=== PATIENT | male | born 1965 | race Caucasian/White ===

== ENCOUNTER 2020-06-10 12:38 | Emergency (ER) | payer OTHER, SELFPAY ==
[2020-06-10 12:56] VITALS: BP 143/85; PULSE 91; RESP 18; TEMP 36.9; O2SAT 98
--- NOTE | 2020-06-10 13:03 | DI.US.S_ITS ---
PROCEDURE: US PERIPH VENOUS LOW EXTREM RT INDICATIONS: PAIN, EDEMA TECHNIQUE: Real-time imaging, as well as color and pulse Doppler interrogation, were performed of the lower extremity deep veins from the inguinal ligament to the popliteal fossa. COMPARISON: None. FINDINGS: The common femoral, femoral and popliteal veins are normally compressible, and free of intraluminal thrombus. Color and pulse Doppler demonstrate normal phasic intraluminal flow. There is normal augmentation response to distal compression maneuver. IMPRESSION: No evidence of DVT in visualized right lower extremity veins. Dictated by: Earl Calderon M.D. on 06/10/2020 at 12:42 Approved by: Earl Calderon M.D. on 06/10/2020 at 12:48
--- NOTE | 2020-06-10 13:05 | DI.RAD.S_ITS ---
PROCEDURE: XR KNEE RT 3V INDICATIONS: pain behind right knee TECHNIQUE: 3 views of the knee were acquired. COMPARISON: None. FINDINGS: Bones: No fracture. Severe narrowing of the lateral patellofemoral joint space. Scattered degenerative subchondral sclerosis and spurring. Moderate narrowing of the medial lateral joint spaces. Possible 1 cm loose body projecting adjacent to the lateral aspect of the distal femoral metaphysis, technically nonspecific. Soft tissues: No joint effusion. No suspicious soft tissue calcifications. IMPRESSION: Severe right knee joint degeneration most pronounced in the patellofemoral compartment. Possible loose body as above Dictated by: Damon Murray M.D. on 06/10/2020 at 13:59 Approved by: Damon Murray M.D. on 06/10/2020 at 14:01
[2020-06-10 14:40] VITALS: PULSE 80
--- NOTE | 2020-06-10 14:40 | ED_ITS ---
HPI - Extremity Problem <SANJANA Kee- - Last Filed: 06/10/20 17:51> General Chief complaint: Extremity Problem,Nontraumatic Stated complaint: hurt back of right knee, also hot Time Seen by Provider: 06/10/20 14:39 Source: patient and family Mode of arrival: Ambulatory Limitations: no limitations History of Present Illness HPI Narrative: The patient is a delightful 55-year-old male former smoker with history of poor circulation to his right leg who presents with a chief complaint of right lower leg pain and swelling. He states has been going on behind his knee 1st past several months. He has been using Aleve, he noticed that a gets very stiff in his right knee when he gets up to walk. Denies any fevers nausea vomiting or diarrhea. He denies any specific alleviating factors, states that it feels worse with motion. Denies any falls or trauma. States he has been working on his house recently, so increased physical activity. He denies any specific injuries to his knee or known arthritis. Related Data Home Medications Medication Instructions Recorded Confirmed naproxen sodium [Aleve] 220 mg PO Q12H PRN 06/10/20 06/10/20 Previous Rx's Medication Instructions Recorded ketorolac 10 mg PO TID PRN #14 tab 06/10/20 lidocaine 1 patch TOP DAILY PRN #15 each 06/10/20 Allergies Allergy/AdvReac Type Severity Reaction Status Date / Time No Known Drug Allergies Allergy Verified 06/10/20 13:00 Review of Systems <[facility] - Last Filed: 06/10/20 17:51> Review of Systems Narrative: GENERAL: Denies chills, fatigue, malaise, fever, sweats. HEENT: Denies sinus pain, ear pain, sore throat, difficulty swallowing, dizziness. RESPIRATORY: Denies dyspnea, cough, wheezing, hemoptysis, sputum. CARDIOVASCULAR: Denies chest pain, palpitations, orthopnea, edema, GASTROINTESTINAL: Denies nausea, vomiting, abdominal pain, diarrhea, constipation, melena. : Denies dysuria, frequency, incontinence, hematuria, urinary retention. MUSCULOSKELETAL: See HPI SKIN: Denies rash, skin lesions, or other NEUROLOGIC: Denies weakness, headache, numbness, change in speech, confusion, seizures, incoordination. PSYCHIATRIC: No concerning psychosocial issues. 12 point review of systems is negative except for those stated above Patient History <TANYA Kee - Last Filed: 06/10/20 17:51> Social History Smoking Status: Former smoker Smoking Status: Former smoker tobacco type: smokeless tobacco alcohol intake frequency: 0-2 drinks per day Substance Use Type: does not use Exam <TANYA Kee - Last Filed: 06/10/20 17:51> Narrative Exam Narrative: GENERAL: This is a well-nourished, well-developed patient, no acute distress with at bedside HEAD: Atraumatic. Normocephalic. No temporal or scalp tenderness. EYES: Pupils equal round and reactive. Extraocular motions intact. No scleral icterus. No injection or drainage. ENT: Nose without bleeding, purulent drainage or septal hematoma. Wearing a mask. Airway patent. CARDIOVASCULAR: Regular rate and rhythm RESPIRATORY: Clear to auscultation. Breath sounds equal bilaterally. No wheezes, rales, or rhonchi. No cough. No increased respiratory effort. No accessory muscle use. EXTREMITIES: Able to fully flex and extend right knee and leg. Able to lift leg off of chair. Positive pedal pulses. BACK: Nontender without deformity or crepitance. No flank tenderness. NEURO: AOx3. SKIN: No erythema laceration or abrasion noted on right knee. Patient has evidence of venous stasis right lower leg. Initial Vital Signs Initial Vital Signs: Vital Signs Temperature 98.5 F 06/10/20 12:56 Pulse Rate 91 H 06/10/20 12:56 Respiratory Rate 18 06/10/20 12:56 Blood Pressure 143/85 H 06/10/20 12:56 Pulse Oximetry 98 06/10/20 12:56 <Papito Baca MD - Last Filed: 06/10/20 18:41> Initial Vital Signs Initial Vital Signs: Vital Signs Temperature 98.5 F 06/10/20 12:56 Pulse Rate 91 H 06/10/20 12:56 Respiratory Rate 18 06/10/20 12:56 Blood Pressure 143/85 H 06/10/20 12:56 Pulse Oximetry 98 06/10/20 12:56 Course <TANYA Kee - Last Filed: 06/10/20 17:51> Orders Ordered: ED Orders 06/10/20 13:03 US periph venous low extrem rt Stat 06/10/20 13:05 XR knee RT 3V Stat Discontinued Medications Lidocaine (Lidoderm) 1 each TOP NOW ONE Stop: 06/10/20 15:13 Last Admin: 06/10/20 15:30 Dose: 1 each Documented by: BEBE Lidocaine (Lidoderm (Remove Patch)) 1 each TOP BEDTIME MATEO Vital Signs Vital signs: Vital Signs - 8 hr 06/10/20 12:56 06/10/20 14:40 06/10/20 16:01 Temperature 98.5 F Pulse Rate 91 H 69 Pulse Rate [Right Posterior Tibial] 80 Respiratory Rate 18 16 Blood Pressure 143/85 H 131/87 Pulse Oximetry 98 98 <Papito Baca MD - Last Filed: 06/10/20 18:41> Orders Ordered: ED Orders 06/10/20 13:03 US periph venous low extrem rt Stat 06/10/20 13:05 XR knee RT 3V Stat Discontinued Medications Lidocaine (Lidoderm) 1 each TOP NOW ONE Stop: 06/10/20 15:13 Last Admin: 06/10/20 15:30 Dose: 1 each Documented by: BEBE Lidocaine (Lidoderm (Remove Patch)) 1 each TOP BEDTIME MATEO Vital Signs Vital signs: Vital Signs - 8 hr 06/10/20 12:56 06/10/20 14:40 06/10/20 16:01 Temperature 98.5 F Pulse Rate 91 H 69 Pulse Rate [Right Posterior Tibial] 80 Respiratory Rate 18 16 Blood Pressure 143/85 H 131/87 Pulse Oximetry 98 98 MDM - Extremity (Nontraumatic) <TANYA Kee - Last Filed: 06/10/20 17:51> Imaging Data US - DVT: Radiologist's Impression: [address] [place] [id number] Ultrasound Report Signed Patient: Kwadwo Benoit EMR#: [id number] : 1965Acct:[id number] Age/Sex: 55 / MDate of Service: 06/10/20 Loc: ED Accession Number: [id number] Procedure: US periph venous low extrem rt Ordering Provider: Thania Lopez PROCEDURE: US PERIPH VENOUS LOW EXTREM RT INDICATIONS: PAIN, EDEMA TECHNIQUE: Real-time imaging, as well as color and pulse Doppler interrogation, were performed of the lower extremity deep veins from the inguinal ligament to the popliteal fossa. COMPARISON: None. FINDINGS: The common femoral, femoral and popliteal veins are normally compressible, and free of intraluminal thrombus. Color and pulse Doppler demonstrate normal phasic intraluminal flow. There is normal augmentation response to distal compression maneuver. IMPRESSION: No evidence of DVT in visualized right lower extremity veins. Dictated by: Earl Calderon M.D. on 06/10/2020 at 12:42 Approved by: Earl Calderon M.D. on 06/10/2020 at 12:48 Extremity x-ray #1: Radiologist's Impression: [facility] [place] [id number] XRay Report Signed Patient: Kwadwo Benoit EMR#: [id number] : 1965Acct:[id number] Age/Sex: 55 / MDate of Service: 06/10/20 Loc: ED Accession Number: [id number] Procedure: XR knee RT 3V Ordering Provider: Thania oLpez PROCEDURE: XR KNEE RT 3V INDICATIONS: pain behind right knee TECHNIQUE: 3 views of the knee were acquired. COMPARISON: None. FINDINGS: Bones: No fracture. Severe narrowing of the lateral patellofemoral joint space. Scattered degenerative subchondral sclerosis and spurring. Moderate narrowing of the medial lateral joint spaces. Possible 1 cm loose body projecting adjacent to the lateral aspect of the distal femoral metaphysis, technically nonspecific. Soft tissues: No joint effusion. No suspicious soft tissue calcifications. IMPRESSION: Severe right knee joint degeneration most pronounced in the patellofemoral compartment. Possible loose body as above Dictated by: Damon Murray M.D. on 06/10/2020 at 13:59 Approved by: Damon Murray M.D. on 06/10/2020 at 14:01 [facility] Narrative Medical decision making narrative: The patient is a 55-year-old male who presents with a chief complaint of pain and swelling behind his right knee. He has a negative ultrasound for DVT. His x-ray is very concerning for severe degenerative joint, possibly loose body noted in his knee. This pain has been ongoing for the past several weeks. He took Aleve this morning, I discussed a trial of prescription ketorolac instead, we are unable to give him a dose in the emergency department due to when he took Aleve. We also discussed a trial of lidocaine patch. [place] states that he has to go through them for referral, his is with him and states understanding. I discussed at length rest ice compression elevation. Discussed going back to the emergency department for any acute concerns. Did discuss at length the importance of following up with primary care provider in the next 48- 72 hours. Possible infected joint was consider, however patient is afebrile, no signs of systemic illness, has no overlying erythema or palpable warmth. Patient and state understanding return precautions as well as follow-up care. Ambulates steadily outside of the department. Discharge Plan Departure Patient Disposition: Home Clinical Impression: Knee pain, right Qualifiers: Chronicity: acute Qualified Code(s): M25.561 - Pain in right knee Discharge Date/Time: 06/10/20 16:03 Instructions: How To Perform RICE (Rest, Ice, Compress, Elevate), DI for Knee Pain Activity Restrictions/Additional Instructions: Thank you for trusting us with your care today. As discussed, your ultrasound shows no evidence of a blood clot. However your x-ray shows severe right knee joint degeneration, and a possible loose body in your knee. You may benefit from physical therapy, further imaging, and or orthopedic referral. I sent in 2 prescriptions to [facility]. I have given you a prescription of Toradol. This is an NSAID. Do not combine it with other NSAIDs such as Aleve or ibuprofen. I suggest taking it with some food, as it can irritate your stomach. Please follow-up with primary care provider in the next few days. As discussed, please come back to the emergency department for any acute concerns. Prescriptions: New lidocaine 5 % adhesive patch,medicated 1 patch TOP DAILY PRN (Reason: pain) Qty: 15 RF: 0 ketorolac 10 mg tablet 10 mg PO TID PRN (Reason: pain) Qty: 14 RF: 0 No Action naproxen sodium [Aleve] 220 mg Capsule 220 mg PO Q12H PRN (Reason: Pain (Scale Score 7-10)) RF: 0 Referrals: Neha Melendez ARNP [Non-Staff] -
--- NOTE | 2020-06-10 14:41 | PC.NURSE ---
bilateral lower legs w/ redness that patient states is normal for his peripheral vascular disease. No warmth. No increase / change from previous.
[2020-06-10] MEDS: LIDOCAINE PATCH 1 EACH ADH..PATCH TOP (15:30)
[2020-06-10 16:01] VITALS: BP 131/87; PULSE 69; RESP 16; O2SAT 98
== END 2020-06-10 16:03 | disposition home or self-care (01) ==
PROVIDERS: Emergency Provider Nurse Practitioner Family
DX: M25.561 Pain in right knee (principal)
CPT/HCPCS: 73562; 93971; 99283; 99284

== ENCOUNTER 2023-10-31 15:37 | Emergency (ER) | payer OTHER, SELFPAY ==
[2023-10-31 15:55] VITALS: BP 159/106; PULSE 81; RESP 18; TEMP 36.9; O2SAT 98; BMI 38.0
--- NOTE | 2023-10-31 17:19 | PC.NURSE ---
patient took flexeril and it helped a little and then the pain returned
--- NOTE | 2023-10-31 17:32 | ED.BACK ---
HPI - Back Pain/Injury <RICARDO Henderson - Last Filed: 10/31/23 19:08> General Chief Complaint: Back Pain/Injury Stated Complaint: low back pain Source: patient History of Present Illness HPI Narrative: 58-year-old male, former smoker and , presents to the emergency department with persistent midline low back pain x5 days. Patient states the pain began while he was seen on the couch watching TV, and denies any trauma or recent extraneous activity. Previous history of back pain that is relieved muscle relaxers, but did not work in this case. Patient endorses 8/10 pain, denies any loss of control of bowel or bladder or lower extremity numbness or tingling. Patient denies any urinary issues. Related Data Home Medications Medication Instructions Recorded Confirmed naproxen sodium 220 mg capsule 220 mg PO Q12H PRN Pain (Scale 06/10/20 06/10/20 (Aleve) Score 7-10) Previous Rx's Medication Instructions Recorded ketorolac 10 mg tablet 10 mg PO TID PRN pain #14 tabs 06/10/20 lidocaine 5 % topical patch 1 patch topical DAILY PRN pain #15 06/10/20 ea methylprednisolone 4 mg tablets in See Rx Instructions PO .COMPLEX 10/31/23 a dose pack (Medrol (Brandon)) back pain #21 ea oxycodone-acetaminophen 5 mg-325 1 tab PO Q4-6H PRN breakthrough 10/31/23 mg tablet (Percocet) pain #10 tabs Allergies Allergy/AdvReac Type Severity Reaction Status Date / Time No Known Drug Allergies Allergy Verified 06/10/20 13:00 Review of Systems <RICARDO Henderson - Last Filed: 10/31/23 19:08> Review of Systems Narrative: Narrative: See HPI. GENERAL: Denies chills, fatigue, fever, sweats. HEENT: Denies sinus pain, ear pain, sore throat, difficulty swallowing, dizziness. RESPIRATORY: Denies dyspnea, cough, wheezing, sputum. CARDIOVASCULAR: Denies chest pain, palpitations, edema. GASTROINTESTINAL: Denies nausea, vomiting, abdominal pain, diarrhea, constipation. : Denies dysuria, frequency, incontinence, hematuria, urinary retention, flank pain, loss of control of bowel or bladder. MSK: Denies weakness, joint pain. Endorses midline lower back pain. SKIN: Denies rash, skin lesions, or pruritis. NEUROLOGIC: Denies weakness, dizziness, headache, numbness, confusion. PSYCHIATRIC: No concerning psychosocial issues. Patient History <RICARDO Henderson - Last Filed: 10/31/23 19:08> Social History Smoking Status: Former smoker Smoking Status: Former smoker tobacco type: smokeless tobacco alcohol intake frequency: 0-2 drinks per day Alcohol type: beer and hard liquor Substance Use Type: does not use Exam <RICARDO Henderson - Last Filed: 10/31/23 19:08> Narrative Exam Narrative: Exam Narrative: GENERAL: This is a well-nourished, well-developed patient, in no acute distress. HEAD: Atraumatic. Normocephalic. EYES: Pupils equal round and reactive. No scleral icterus, injection or drainage. ENT: Nose without bleeding, purulent drainage. Airway patent. NECK: Trachea midline. No JVD. CARDIOVASCULAR: Regular rate and rhythm without murmurs, peripheral pulses intact, cap refill <2 sec. RESPIRATORY: Breath sounds equal and clear bilaterally. No wheezes, rales, or rhonchi. No cough. No increased respiratory effort. No accessory muscle use. GASTROINTESTINAL: Abdomen soft, non-tender, nondistended without guarding or rebound. No suprapubic pain. No CVA tenderness. MSK: Moves all extremities. Normal range of motion, no clubbing or edema. Neurovascularly intact. NEURO: A&O x 3. SKIN: Warm, dry, no rashes or lesions noted. BACK carding utility tender but free of any obvious external abnormalities. There is no asymmetry, swelling, bruising or wound. There is no paraspinal tenderness or CVA tenderness. SI joints nontender. No pain over spinous processes. No symptoms of cauda equina such as saddle anesthesia. Sensation is grossly intact. ROM is full and without pain. SLE is negative bilaterally. Reflexes diminished at patella and achilles bilaterally. Resistive strengths are within normal limits Gait is ataxic. Initial Vital Signs Initial Vital Signs: Vital Signs Temperature 98.5 F 10/31/23 15:55 Pulse Rate 81 10/31/23 15:55 Respiratory Rate 18 10/31/23 15:55 Blood Pressure 159/106 H 10/31/23 15:55 Pulse Oximetry 98 10/31/23 15:55 Oxygen Delivery Method Room Air 10/31/23 15:55 Reviewed <Zacarias Patterson DO - Last Filed: 10/31/23 19:29> Initial Vital Signs Initial Vital Signs: Vital Signs Temperature 98.5 F 10/31/23 15:55 Pulse Rate 81 10/31/23 15:55 Respiratory Rate 18 10/31/23 15:55 Blood Pressure 159/106 H 10/31/23 15:55 Pulse Oximetry 98 10/31/23 15:55 Oxygen Delivery Method Room Air 10/31/23 15:55 Course <RICARDO Henderson - Last Filed: 10/31/23 19:08> Orders Ordered: ED Orders 10/31/23 17:44 CT kidney ureter bladder (KUB) Stat Discontinued Medications Ketorolac Tromethamine (Ketorolac 30 Mg/Ml Vial) 30 mg IM NOW ONE Stop: 10/31/23 19:23 Last Admin: 10/31/23 19:27 Dose: 30 mg Documented By: MICHAEL Vital Signs Vital signs: Vital Signs - 8 hr 10/31/23 15:55 Temperature 98.5 F Pulse Rate 81 Respiratory Rate 18 Blood Pressure 159/106 H Pulse Oximetry 98 Oxygen Delivery Method Room Air <Zacarias Patterson DO - Last Filed: 10/31/23 19:29> Orders Ordered: ED Orders 10/31/23 17:44 CT kidney ureter bladder (KUB) Stat Discontinued Medications Ketorolac Tromethamine (Ketorolac 30 Mg/Ml Vial) 30 mg IM NOW ONE Stop: 10/31/23 19:23 Last Admin: 10/31/23 19:27 Dose: 30 mg Documented By: MICHAEL Vital Signs Vital signs: Vital Signs - 8 hr 10/31/23 15:55 Temperature 98.5 F Pulse Rate 81 Respiratory Rate 18 Blood Pressure 159/106 H Pulse Oximetry 98 Oxygen Delivery Method Room Air MDM - Back Pain/Injury <RICAROD Henderson - Last Filed: 10/31/23 19:08> Differential Diagnosis Differential diagnosis: Likely lumbar radiculopathy, strain of lumbar region and other (Nephrolithiasis) Lab Data Labs: Urine Dip Bedside Urine Glucose Negative Bedside Urine Bilirubin - Negative Bedside Urine Ketone - Negative Urine Specific [place] 1.015 Bedside Urine Occult Blood - Negative Bedside Urine pH 6.0 Bedside Urine Protein - Negative Bedside Urine Urobilinogen - Negative Bedside Urine Nitrite - Negative Bedside Urine Leukocytes - Negative Esterase Imaging Data CT - KUB: Radiologist's Impression: Close Abdomen/Pelvis CT (Signed) Yinka Ruelas - 10/31/23 Launch?[address] [address] [address] Scan Report Signed Patient: Kwadwo Benoit MR#: [id number] : 1965 Acct:[id number] Age/Sex: 58 / M Date of Service: 10/31/23 Loc: ED Accession Number: [id number] Procedure: CT kidney ureter bladder (KUB) Ordering Provider: Zacarias Sainz PROCEDURE: CT KIDNEY URETER BLADDER (KUB) INDICATIONS: Right low back pain TECHNIQUE: Axial sections were acquired from the lung bases to the pubic symphysis. Coronal and sagittal reformats were performed. For radiation dose reduction, the following was used: automated exposure control, adjustment of mA and/or kV according to patient size. COMPARISON: None. FINDINGS: Image quality: Diagnostic. Lower Chest: No significant findings. URINARY: Right Kidney: No stones or hydronephrosis. Right Ureter: No hydroureter. Left Kidney: No stones or hydronephrosis. Left Ureter: No hydroureter. Bladder: Normal wall thickness. No stones. ABDOMEN: Liver: No contour-deforming solid mass. Mild hepatic steatosis. There is a 1.5 cm indeterminate hypodense nodule in the anterior segment of the right hepatic lobe. Gallbladder: No radiopaque gallstones or wall thickening. Biliary ducts: No biliary dilation. Pancreas: No ductal dilation. Spleen: Size is within normal limits. Adrenal Glands: No adrenal nodules. Stomach and Bowel: Appendix is not visualized. No secondary signs for acute appendicitis. Normal small bowel and colonic caliber, without significant wall thickening. Peritoneum: No abnormal intraperitoneal fluid. No free air. Ventral Wall: No hernia. Abdominal Nodes: No enlarged retroperitoneal or mesenteric lymph nodes. Vessels: Aorta and inferior vena cava are normal in size. PELVIS: Pelvic Organs: Prostate is enlarged. Pelvic Nodes: Unremarkable. Miscellaneous: No inguinal hernias are seen. Bones: There are sclerotic foci in the right iliac bone and the left acetabulum. Mild degenerative disc disease and severe facet arthropathy noted in lumbar spine. IMPRESSION: 1. No obstructing stones or hydronephrosis. 2. Hepatic steatosis. 3. A 1.5 cm indeterminate hepatic hypodensity, most likely a cyst. 4. Prostate is enlarged. 5. Degenerative disc and facet disease in lumbar spine. 6. Sclerotic foci in right iliac bone and left acetabulum. In a patient without a history of cancer, both are most likely small bone islands. Recommend clinical correlation. Dictated by: Yinka Rueals M.D. on 10/31/2023 at 18:45 Approved by: Yinka Ruelas M.D. on 10/31/2023 at 18:51 MDM Narrative Medical decision making narrative: 58-year-old male with low back pain x5 days. Assessment revealed no red flags but concerned about possible kidney stones or lumbar radiculopathy. Toradol injection provided. Will obtain a CT KUB. Point of care urine dip was normal. CT revealed no kidney stones but there is degenerative disc disease. Will treat with a Medrol Dosepak and short course of pain medication. Instructed patient to follow up with family doctor as needed, but for worsening symptoms, to return to the emergency department. Consideration included that injury was non-traumatic, patient is not a IV drug user, no fever, neurovascular intact, no weakness, no signs of epidural abscess or saddle anesthesia. <Zacarias Patterson, - Last Filed: 10/31/23 19:29> Lab Data Labs: Urine Dip Bedside Urine Glucose Negative Bedside Urine Bilirubin - Negative Bedside Urine Ketone - Negative Urine Specific [place] 1.015 Bedside Urine Occult Blood - Negative Bedside Urine pH 6.0 Bedside Urine Protein - Negative Bedside Urine Urobilinogen - Negative Bedside Urine Nitrite - Negative Bedside Urine Leukocytes - Negative Esterase Discharge Plan Departure Patient Disposition: Home Clinical Impression: Lumbar back pain Instructions: DI for Low Back Pain Activity Restrictions/Additional Instructions: *You have been diagnosed with low back pain. Your point of care urine dip was not consistent with a UTI or kidney stones. Your CT did not reveal any kidney stones degenerative disc disease. Will treat with a Medrol Dosepak and a short course of pain medication. Please follow-up with your family doctor as needed. For any worsening symptoms that include lower extremity numbness and tingling, loss of control of bowel or bladder or intolerable pain, please return to the emergency department. *What to do: *Please continue to take your regular medications as directed. [ x] New medication prescriptions sent to your pharmacy: [Walk-in] [ ] New medication written as a paper prescription [ ] No new medications given *Please follow up with your primary care provider in 2-3 days, call for an appointment. Let them know you were seen in the Emergency Department and that we ask that you be seen in follow up. We will electronically transmit a record of today's note if your PCP is in our system *If you do not have a primary care provider please contact the [facility] Resource line at [phone]. They will ask some questions about your medical history and help get you set up with a doctor in the community. ? Return to ER if you should have any new, worsening or concerning symptoms, such as worsening pain, severe headache, confusion, chest pain, difficulty breathing, fever greater than 101 F, shaking chills, persistent vomiting to the point that you cannot drink fluids, or other new or worsening symptoms. Prescriptions: New methylprednisolone [Medrol (Brandon)] 4 mg tablets,dose pack See Rx Instructions .ROUTE .COMPLEX Qty: 21 0RF Rx Instructions: orally per package directions oxycodone-acetaminophen [Percocet] 5-325 mg tablet 1 tab PO Q4-6H PRN (Reason: breakthrough pain) Qty: 10 0RF No Action naproxen sodium [Aleve] 220 mg Capsule 220 mg PO Q12H PRN (Reason: Pain (Scale Score 7-10)) lidocaine 5 % adhesive patch,medicated 1 patch TOP DAILY PRN (Reason: pain) Qty: 15 0RF Rx Instructions: leave on most painful area for up to 12 hrs ketorolac 10 mg tablet 10 mg PO TID PRN (Reason: pain) Qty: 14 0RF Referrals: Provider,Neetu HARRISON [Primary Care Provider] - Stand Alone Forms: Patient Portal/API ED Sign-out <Zacarias Patterson DO - Last Filed: 10/31/23 19:29> Cosign ED Attending Cosignature Attestation: Dr Patterson Co-Sign Statement: I was available for consultation during this patient's emergency department visit. This chart is signed by myself for administrative purposes only. I did not have direct contact with this patient during this visit. They were seen independently by the APC.
--- NOTE | 2023-10-31 17:44 | DI.CT.S_ITS ---
PROCEDURE: CT KIDNEY URETER BLADDER (KUB) INDICATIONS: Right low back pain TECHNIQUE: Axial sections were acquired from the lung bases to the pubic symphysis. Coronal and sagittal reformats were performed. For radiation dose reduction, the following was used: automated exposure control, adjustment of mA and/or kV according to patient size. COMPARISON: None. FINDINGS: Image quality: Diagnostic. Lower Chest: No significant findings. URINARY: Right Kidney: No stones or hydronephrosis. Right Ureter: No hydroureter. Left Kidney: No stones or hydronephrosis. Left Ureter: No hydroureter. Bladder: Normal wall thickness. No stones. ABDOMEN: Liver: No contour-deforming solid mass. Mild hepatic steatosis. There is a 1.5 cm indeterminate hypodense nodule in the anterior segment of the right hepatic lobe. Gallbladder: No radiopaque gallstones or wall thickening. Biliary ducts: No biliary dilation. Pancreas: No ductal dilation. Spleen: Size is within normal limits. Adrenal Glands: No adrenal nodules. Stomach and Bowel: Appendix is not visualized. No secondary signs for acute appendicitis. Normal small bowel and colonic caliber, without significant wall thickening. Peritoneum: No abnormal intraperitoneal fluid. No free air. Ventral Wall: No hernia. Abdominal Nodes: No enlarged retroperitoneal or mesenteric lymph nodes. Vessels: Aorta and inferior vena cava are normal in size. PELVIS: Pelvic Organs: Prostate is enlarged. Pelvic Nodes: Unremarkable. Miscellaneous: No inguinal hernias are seen. Bones: There are sclerotic foci in the right iliac bone and the left acetabulum. Mild degenerative disc disease and severe facet arthropathy noted in lumbar spine. IMPRESSION: 1. No obstructing stones or hydronephrosis. 2. Hepatic steatosis. 3. A 1.5 cm indeterminate hepatic hypodensity, most likely a cyst. 4. Prostate is enlarged. 5. Degenerative disc and facet disease in lumbar spine. 6. Sclerotic foci in right iliac bone and left acetabulum. In a patient without a history of cancer, both are most likely small bone islands. Recommend clinical correlation. Dictated by: Yinka Ruelas M.D. on 10/31/2023 at 18:45 Approved by: Yinka Ruelas M.D. on 10/31/2023 at 18:51
[2023-10-31] MEDS: KETOROLAC 30 MG/ML VIAL IM (19:27)
[2023-10-31 19:35] VITALS: BP 184/100; PULSE 67; RESP 12; O2SAT 99
--- NOTE | 2023-10-31 19:38 | PC.NURSE ---
patient denied symptoms of chest pain, headache, dizziness, or blurry vision. He was told to monitor for s/sx of high blood pressure at home and return to the ER for new or worsening symptoms.
== END 2023-10-31 19:40 | disposition home or self-care (01) ==
PROVIDERS: Emergency Provider Registered Nurse
DX: M54.50 Low back pain, unspecified (principal)
CPT/HCPCS: 74176; 81003; 96372; 99283; 99284; J1885

== ENCOUNTER → 2024-12-28 14:39 | Outpatient (CLI) | payer OTHER, SELFPAY ==
--- NOTE | 2024-12-28 14:40 | DI.US.S_ITS ---
PROCEDURE: US PERIPH VENOUS LOW EXTREM RT INDICATIONS: RIGHT LEG SWELLING S/P TKA 12/24 / RULE OUT DVT TECHNIQUE: Real-time imaging, as well as color and pulse Doppler interrogation, were performed of the lower extremity deep veins from the inguinal ligament to the popliteal fossa, with documentation of the visualized calf veins. COMPARISON: [facility], PERIP VENOUS LOW EXTREM RT, 06/10/2020, 13:16. FINDINGS: The common femoral, femoral, popliteal, and the visualized calf veins are normally compressible, and free of intraluminal thrombus. Color and pulse Doppler demonstrate normal phasic intraluminal flow. There is normal augmentation response to distal compression maneuver. IMPRESSION: No findings of lower extremity deep venous thrombosis. Dictated by: Jeffery John M.D. on 12/28/2024 at 15:18 Approved by: Jeffery John M.D. on 12/28/2024 at 15:18
== END ==
PROVIDERS: Referring Provider Orthopaedic Surgery; Visit Provider Orthopaedic Surgery
DX: M79.89 Other specified soft tissue disorders (principal)
CPT/HCPCS: 93971